=== PATIENT | male | born 1950 | race Caucasian/White ===

== ENCOUNTER 2018-02-04 06:14 | Inpatient (IN) | payer OTHER, BC ==
[2018-02-04 06:38] VITALS: BMI 33.2
--- NOTE | 2018-02-04 07:14 | PDOC ---
History of Present Illness <Desi Jon - Last Filed: 02/04/18 10:18> - History of Present Illness Initial Comments: 02/04/18 07:29 The patient is a 68 year old male with a history of HTN, HLD who presents for evaluation of SOB and cough. The patient reports a 5 week history of productive cough with associated SOB. The patient reports that he has been managed on an outpatient basis by his primary care provider Dr. Dileep Arango and has been on a course of azithromycin and currently on a course of bactrim with no improvement in his symptoms. The patient reports that Dr. Arango sent the patient in for admission for iv antibiotics. The patient reports continued cough with production of greenish sputum. The patient reports some worsening lower extremity swelling, but otherwise denies fevers, chills, chest pain, nausea, vomiting, abdominal pain, or changes with urination or bowel movements. <Mitchell Stiles - Last Filed: 02/04/18 10:30> - General Chief Complaint: Respiratory Stated Complaint: COUGHING Time Seen by Provider: 02/04/18 07:13 Past History <Desi Jon - Last Filed: 02/04/18 10:18> - Past Medical History COPD: No GI Disorders: Yes (DIVERTICULOSIS) HTN: Yes - Surgical History Neurologic Surgery: Yes (s/p front-parietal craniotomy) Orthopedic Surgery: Yes (ELBOW SX) - Immunization History Immunization Up to Date: Yes - Suicide/Smoking/Psychosocial Hx Smoking Status: No (INTUBATED UTD) Smoking History: Never smoked Have you smoked in the past 12 months: No Number of Cigarettes Smoked Daily: 0 Information on smoking cessation initiated: No Hx Alcohol Use: No Drug/Substance Use Hx: No Substance Use Type: Alcohol <Mitchell Stlies - Last Filed: 02/04/18 10:30> - Past Medical History Allergies/Adverse Reactions: Allergies Allergy/AdvReac Type Severity Reaction Status Date / Time No Known Allergies Allergy Verified 02/04/18 06:36 Home Medications: Ambulatory Orders Zolpidem Tartrate [Ambien Cr] 12.5 mg PO HS 01/25/16 Amlodipine Besylate/Benazepril [Lotrel 5-10 mg Capsule] 1 each PO DAILY Diazepam [Valium] 5 mg PO ONCE 02/04/18 Sulfamethoxazole/Trimethoprim [Sulfatrim 800-160 mg/20 ml Jeanie] 20 ml PO BID 03/19 Review of Systems - Review of Systems Comments:: 02/04/18 07:39 Constitutional: No fevers, chills, fatigue, malaise HEENT: No Rhinorrhea, nasal congestion, visual changes Cardiovascular: No chest pain, syncope, palpitations, lightheadedness Respiratory: SOB, Cough. No Hemoptysis, Gastrointestinal: No Abdominal pain, Nausea, Vomiting, Constipation, Diarrhea, Melena Genitourinary: No Dysuria, Frequency, Urgency, Hesitancy, Hematuria, Flank pain Musculoskeletal: No Myalgia, arthralgia Skin: No rashes, itching, bruising, pallor Neurologic: No Headache, Dizziness, Numbness, Weakness, or Tingling Psychiatric: No Hallucinations. No SI or HI <Mitchell Stiles - Last Filed: 02/04/18 10:30> *Physical Exam - Vital Signs Last Vital Signs Temp Pulse Resp BP Pulse Ox 97.4 F L 68 22 136/96 97 02/04/18 06:31 02/04/18 06:31 02/04/18 06:31 02/04/18 06:31 02/04/18 06:31 <Desi Jon - Last Filed: 02/04/18 10:18> - Vital Signs Last Vital Signs Temp Pulse Resp BP Pulse Ox 97.4 F L 68 22 136/96 97 02/04/18 06:31 02/04/18 06:31 02/04/18 06:31 02/04/18 06:31 02/04/18 06:31 - Physical Exam Comments: 02/04/18 07:39 General Appearance: Nourished. No Apparent Distress HEENT: EOMI, BOGDAN. No Pharyngeal Erythema, Tonsillar Exudate, Tonsillar Erythema Neck: No Cervical Lymphadenopathy Respiratory/Chest: Lungs Clear, Normal Breath Sounds. No Crackles, Rales, Rhonchi, Wheezing Cardiovascular: Regular Rhythm, Regular Rate. No Murmur, Gallops, Rubs Gastrointestinal/Abdominal: Normal Bowel Sounds, Soft. No Guarding, Rebound, Tenderness Musculoskeletal: No CVA Tenderness Extremity: 3+ Pitting edema in the lower extremities bilaterally. Normal Capillary Refill Integumentary: Normal Color, Dry, Warm Neurologic: Fully Oriented, Alert, Normal Mood/Affect, Normal Response, <Mitchell Stiles - Last Filed: 02/04/18 10:30> Heart Score/ECG Review #1 ECG reviewed & interpreted by me at: 10:04 General ECG Interpretation: Sinus Rhythm, Normal Rate, Normal Intervals, No acute ischemic changes <Mitchell Stiles - Last Filed: 02/04/18 10:30> ED Treatment Course - LABORATORY CBC & Chemistry Diagram: 02/04/18 07:24 02/04/18 07:24 - ADDITIONAL ORDERS Additional order review: Laboratory Results 02/04/18 07:24 Sodium 141 Potassium 3.8 Chloride 107 Carbon Dioxide 28 Anion Gap 6 L BUN 9 D Creatinine 1.0 Creat Clearance w eGFR > 60 Random Glucose 109 H Calcium 8.4 L Total Bilirubin 0.3 D AST 17 D ALT 16 D Alkaline Phosphatase 71 Creatine Kinase 130 Troponin I 0.03 D B-Natriuretic Peptide 113.24 Total Protein 6.8 Albumin 3.6 02/04/18 07:24 RBC 3.93 L MCV 95.4 MCHC 34.4 RDW 14.8 D MPV 7.1 L Neutrophils % No Result Required. Lymphocytes % No Result Required. - Medications Given in the ED: ED Medications Discontinued Medications Generic Name Dose Route Start Last Admin Trade Name Freq PRN Reason Stop Dose Admin Albuterol/Ipratropium 1 amp 02/04/18 07:46 02/04/18 08:30 Duoneb - NEB 02/04/18 07:47 1 amp ONCE ONE Administration <Desi Jon - Last Filed: 02/04/18 10:18> - LABORATORY CBC & Chemistry Diagram: 02/04/18 07:24 02/04/18 07:24 <Mitchell Stiles - Last Filed: 02/04/18 10:30> Medical Decision Making - Medical Decision Making 02/04/18 10:[address] Dileep Arango's answering service, patient's PCP, awaiting call back. <Desi Jon - Last Filed: 02/04/18 10:18> - Medical Decision Making 02/04/18 07:40 The patient is a 68 year old male with a history of HTN, HLD who presents for evaluation of SOB and cough. Differential includes but is not limited to: ACS, Pneumonia, CHF exacerbation, infectious, metabolic derangement. Given the patient's history, we will obtain a cbc, cmp, troponin, bnp, EKG, chest CT to evaluate further for possible etiologies. We will continue to monitor and reassess in the meantime. 02/04/18 10:29 CBC, cmp, troponin, bnp are unremarkable. Chest CT demonstrates chronic changes , but no evidence of pneumonia as read by our radiologist. We discussed the case with Dr. Arango who accepted the patient for admission. <Mitchell Stiles - Last Filed: 02/04/18 10:30> *DC/Admit/Observation/Transfer - Attestations Scribe Attestion: 02/04/18 10:19 Documentation prepared by Desi Jon, acting as medical voucher clerk for Paula Guzman DO. <Desi Jon - Last Filed: 02/04/18 10:18> - Discharge Dispostion Admit: Yes <Mitchell Stiles - Last Filed: 02/04/18 10:30> Diagnosis at time of Disposition: COPD exacerbation CHF (congestive heart failure) Qualifiers: Heart failure type: unspecified Heart failure chronicity: unspecified Qualified Code(s): I50.9 - Heart failure, unspecified - Discharge Dispostion Condition at time of disposition: Stable - Referrals Referrals: Dileep Arango MD [Primary Care Provider] - - Patient Instructions - Post Discharge Activity
--- NOTE | 2018-02-04 07:19 | PDOC ---
Attending Attestation - HPI HPI: 02/04/18 10:50 The patient is a 68 year old male, with a significant past medical history of HTN and HLD, who presents to the emergency department with, 5 weeks of a worsening cough and shortness of breath. The patient describes his cough as intermittently productive with clear sputum sometimes green in coloration. The patient took two courses of a Z-Pack and is now on Bactrim, without improvement. He reports he used to be able to run 4 miles and can now only run a half of mile at most. He reports a runny nose and itchy eyes. He denies any recent fevers, chills, headache or dizziness. He denies any recent nausea, vomit, diarrhea or constipation. He denies any recent chest pain. He denies any recent dysuria, frequency, urgency or hematuria. Allergies: NKA Social History: Nonsmoker. Denies EtOH use and recreational drug use. Primary Care Physician: Dr. Dileep Arango <Desi Jon - Last Filed: 02/04/18 10:50> - Resident Resident Name: Mitchell Stiles - ED Attending Attestation I have performed the following: I have examined & evaluated the patient, The case was reviewed & discussed with the resident, I agree w/resident's findings & plan, Exceptions are as noted - Physicial Exam PE: 02/04/18 11:24 gen: aaox3, nad heart: +s1s2 reg Lungs: cta b/l abd: soft, nt/nd +bs ext: 2+ pitting edema to b/l LE, ambulatory with a steady gait ambulatory in the ED with a steady gait - Medical Decision Making 02/04/18 07:19 I, Dr. Paula Guzman, DO, attest that this document has been prepared under my direction and personally reviewed by me in its entirety. I further attest, that it accurately reflects all work, treatment, procedures and medical decision -making performed by me. 02/04/18 10:04 a/p: 68yo male sent by PMD for persistent cough, sob, sosa -recently treated twice with azithromycin as outpt -decreased exercise tolerance from 4miles per day to 0.5miles per day walking without sosa -no cp -LE edema -concerning for CAD/CHF -will obtain labs, ct chest (requested by Dr. Dileep Arango), will need obs vs admission -LE edema - will obtain duplex study given hx of knee replacement in Jul 2017 -will place on cardiac sonographer 02/04/18 10:[address] Dileep Arango request Dr. Mendez consult. 02/04/18 10:26 duplex negative for DVT + L bakers cyst <Paula Guzman - Last Filed: 02/04/18 11:26> Heart Score/ECG Review - ECG Intrepretation Comment:: 02/04/18 10:05 sinus kelsea at 55, nl axis, nl interval, no acute st/t wave findings <Paula Guzman - Last Filed: 02/04/18 11:26> Attestations - Attestations 02/04/18 10:51 Documentation prepared by Dsei Jon, acting as medical or surgical instrument maker for Paula Guzman DO. <Desi Jon - Last Filed: 02/04/18 10:50>
[2018-02-04] MEDS ORDERED: ALBUTEROL SO4 2.5/IPRATROPIUM 0.5 INH SOL 3 ML VIAL.NEB. NEB ONE ×2 (07:46→08:28)
[2018-02-04 07:48] LABS: HEMATOCRIT 37.5 % (35.4-49); HEMOGLOBIN 12.9 GM/dL (11.7-16.9); MCH 32.8 pg (25.7-33.7); MCHC 34.4 g/dl (32.0-35.9); MEAN CELL VOLUME 95.4 fl (80-96); MEAN PLT VOLUME 7.1 fl (7.5-11.1); PLATELET COUNT 248 K/MM3 (134-434); RBC 3.93 M/mm3 (4.00-5.60); RDW 14.8 % (11.9-15.9); WHITE BLOOD COUNT 9.3 K/mm3 (4.0-10.0)
[2018-02-04 08:06] LABS: ALBUMIN 3.6 g/dl (3.4-5.0); ANION GAP 6 (8-16); BILIRUBIN,TOTAL 0.3 mg/dL (0.2-1.0); BLOOD UREA NITROGEN 9 mg/dL (7-18); CALCIUM 8.4 mg/dL (8.5-10.1); CHLORIDE 107 mmol/L (98-107); CO2 28 mmol/L (21-32); GLUCOSE,RANDOM 109 mg/dL (74-106); SGPT/ALT 16 U/L (12-78); SODIUM 141 mmol/L (136-145); TOT PROT 6.8 g/dl (6.4-8.2)
[2018-02-04 08:09] LABS: ALK PHOS 71 U/L (45-117); N-TERMINAL BNP 113.24 pg/ml (5-125)
[2018-02-04 08:12] LABS: POTASSIUM 3.8 mmol/L (3.5-5.1)
[2018-02-04 08:13] LABS: SGOT/AST 17 U/L (15-37)
[2018-02-04 10:03] LABS: ANISOCYTOSIS 1+; MACROCYTOSIS 1+; PLATELET ESTIMATE NORMAL
[2018-02-04] MEDS ORDERED: ASPIRIN 81 MG CHEWABLE TABLETS PO ONE (10:05)
[2018-02-04] MEDS ORDERED: ASPIRIN 81 MG CHEWABLE TABLETS ONE (10:22)
[2018-02-04 10:31] LABS: VENOUS PC02 36.4 mmHg (38-52); VENOUS PH 7.47 (7.32-7.42)
[2018-02-04 10:32] LABS: VENOUS PO2 80.7 mmHg (28-48)
--- NOTE | 2018-02-04 13:10 | HP ---
Admitting History and Physical - Admission Chief Complaint: coughfing plem x 2wk. sob. slightley confused History of Present Illness: pt tx w numeruos atxk and inhaler steroids no help cxr copd mild outpt family concerned pt slightly delirious than befor taking in account for his ptsd [place] related developed edema legs ovef 2 wks bnp slghtly elevated ct mild chr changes History Source: Patient, Family Member Limitations to Obtaining History: Poor Historian (at times) - Past Medical History REFERRAL MANAGEMENT LIAISON: Yes: Other (anxiety) Cardiovascular: Yes: HTN Pulmonary: Yes: Bronchitis, COPD, Other (brothers w pneumonitis brother w myethenia gravis) Hepatobiliary: Yes: Cholelithiasis - Smoking History Smoking history: Never smoked Have you smoked in the past 12 months: No Aproximately how many cigarettes per day: 0 - Alcohol/Substance Use Hx Alcohol Use: No - Social History Usual Living Arrangement: Yes: Alone ADL: Independent History of Recent Travel: No Home Medications - Allergies Allergies/Adverse Reactions: Allergies Allergy/AdvReac Type Severity Reaction Status Date / Time No Known Allergies Allergy Verified 02/04/18 06:36 - Home Medications Home Medications: Ambulatory Orders Zolpidem Tartrate [Ambien Cr] 12.5 mg PO HS 01/25/16 Amlodipine Besylate/Benazepril [Lotrel 5-10 mg Capsule] 1 each PO DAILY Diazepam [Valium] 5 mg PO ONCE 02/04/18 Sulfamethoxazole/Trimethoprim [Sulfatrim 800-160 mg/20 ml Jeanie] 20 ml PO BID 03/19 Family Disease History - Family Disease History Family Disease History: Other: Brother (myesthenia gravis/ pneumonitis) Review of Systems - Review of Systems Constitutional: reports: Other (coghf) Eyes: reports: No Symptoms HENT: reports: No Symptoms Neck: reports: No Symptoms Cardiovascular: reports: Shortness of Breath Respiratory: reports: Cough Gastrointestinal: reports: No Symptoms Genitourinary: reports: No Symptoms Breasts: reports: No Symptoms Reported Musculoskeletal: reports: No Symptoms Integumentary: reports: No Symptoms Neurological: reports: Confusion Endocrine: reports: No Symptoms Hematology/Lymphatic: reports: No Symptoms Psychiatric: reports: No Symptoms Physical Examination Vital Signs: Vital Signs Temperature 97.5 F L 02/04/18 10:58 Pulse Rate 54 L 02/04/18 10:58 Respiratory Rate 18 02/04/18 10:58 Blood Pressure 128/73 02/04/18 10:58 O2 Sat by Pulse Oximetry (%) 94 L 02/04/18 10:58 Constitutional: Yes: Anxious. No: Well Nourished Eyes: Yes: WNL HENT: Yes: WNL Neck: Yes: WNL Cardiovascular: Yes: WNL Respiratory: Yes: Cough, SOB on Exertion, Wheezes Gastrointestinal: Yes: WNL ...Rectal Exam: Yes: Deferred Renal/: Yes: WNL Breast(s): Yes: WNL Musculoskeletal: Yes: WNL Extremities: Yes: WNL, Other Edema: Yes Edema: LLE: 2+, RLE: 2+ Peripheral Pulses WNL: Yes Peripheral Pulses: Left Radial: 1+, Right Radial: 1+, Left Doralis Pedis: 1+, Right Dorsalis Pedis: 1+, Left Femoral: 1+, Right Femoral: 1+ Integumentary: Yes: WNL Neurological: Yes: Alert, Oriented ...Motor Strength: WNL Psychiatric: Yes: Agitated Labs: CBC, BMP 02/04/18 07:24 02/04/18 07:24 Problem List - Problems (1) PTSD (post-traumatic stress disorder) Code(s): F43.10 - POST-TRAUMATIC STRESS DISORDER, UNSPECIFIED (2) Hypertension Code(s): I10 - ESSENTIAL (PRIMARY) HYPERTENSION (3) Gall bladder stones Code(s): K80.20 - CALCULUS OF GALLBLADDER W/O CHOLECYSTITIS W/O OBSTRUCTION (4) Adjustment reaction with anxiety and depression Code(s): F43.23 - ADJUSTMENT DISORDER WITH MIXED ANXIETY AND DEPRESSED MOOD (5) Adjustment reaction with anxiety and depression Code(s): F43.23 - ADJUSTMENT DISORDER WITH MIXED ANXIETY AND DEPRESSED MOOD (6) H/O craniotomy Code(s): Z98.890 - OTHER SPECIFIED POSTPROCEDURAL STATES Assessment/Plan steroids iv pulm cosult card enzymes o2 n/c iv antbxs
[2018-02-04] MEDS ORDERED: FUROSEMIDE 40 MG TABLET (FP) PO ONE (13:21)
[2018-02-04] MEDS ORDERED: FUROSEMIDE 40 MG TABLET (FP) ONE (14:28)
[2018-02-04] MEDS ORDERED: PIPERACILLIN/TAZOB 3.375 GM 3.375 GM/50 ML BAG IVPB ONE ×2 (14:28→22:28)
--- NOTE | 2018-02-04 14:29 | EKG ---
Test Reason : Blood Pressure : / mmHG Vent. Rate : 052 BPM Atrial Rate : 052 BPM P-R Int : 164 ms QRS Dur : 100 ms QT Int : 454 ms P-R-T Axes : 087 -02 039 degrees QTc Int : 422 ms SINUS BRADYCARDIA OTHERWISE NORMAL ECG WHEN COMPARED WITH ECG OF 22-JUN-2017 11:32, NO SIGNIFICANT CHANGE WAS FOUND Confirmed by MD Ruvalcaba Daniel ([id number]) on 02/04/2018 2:29:33 PM Referred By: Confirmed By:Mitchell Ruvalcaba MD
[2018-02-04] MEDS: PIPERACILLIN/TAZOB 3.375 GM 3.375 GM in DEXTROSE 5%-WATER - 50 ML IVPB SCH ×2 (14:43→22:33)
[2018-02-04] MEDS: ALBUTEROL SO4 2 MG TABLET PO SCH ×3 (15:12→22:34)
[2018-02-04] MEDS ORDERED: methylPREDNISolone NA SUCC 40 MG/1 ML VIAL ONE ×2 (15:46→22:35)
[2018-02-04] MEDS: methylPREDNISolone NA SUCC 40 MG/1 ML VIAL IVPUSH SCH ×2 (15:50→22:38)
--- NOTE | 2018-02-04 16:10 | EKG ---
Test Reason : Blood Pressure : / mmHG Vent. Rate : 053 BPM Atrial Rate : 053 BPM P-R Int : 158 ms QRS Dur : 090 ms QT Int : 422 ms P-R-T Axes : 068 -08 033 degrees QTc Int : 395 ms SINUS BRADYCARDIA OTHERWISE NORMAL ECG WHEN COMPARED WITH ECG OF 04-FEB-2018 07:57, NO SIGNIFICANT CHANGE WAS FOUND Confirmed by MD Ruvalcaba Daniel ([id number]) on 02/04/2018 4:10:50 PM Referred By: Gillian VALDIVIA Confirmed By:Mitchell Ruvalcaba MD
--- NOTE | 2018-02-04 16:48 | PN ---
Progress Note (short form) - Note Progress Note: PULMONARY CONSULTATION DICTATED 02/04/18 IMP DYSPNEA/COUGH ? HYPER-REACTIVE AIRWAY SYNDROME ? CARDIAC HTM HLD NIELS PLAN IV STEROIDS INHALED BRONCHODILATORS ECHO CARDIOLOGY EVALUATION PFTS OUTPATIENT DR HALL Problem List - Problems (1) Dyspnea on exertion Code(s): R06.09 - OTHER FORMS OF DYSPNEA (2) Hypertension Code(s): I10 - ESSENTIAL (PRIMARY) HYPERTENSION (3) Cough in adult patient Code(s): R05 - COUGH (4) Sleep apnea Code(s): G47.30 - SLEEP APNEA, UNSPECIFIED
--- NOTE | 2018-02-04 17:27 | CONS ---
PULMONARY CONSULTATION DATE OF CONSULTATION: 02/04/2018 REFERRING PHYSICIAN: Dr. Dileep Arango. HISTORY OF PRESENT ILLNESS: The patient is a 68-year-old white male with a past medical history of hypertension, hyperlipidemia, obstructive sleep apnea on CPAP, nonsmoker, admitted to [facility] with complaint of 5-week history of increasing shortness of breath, dyspnea on exertion and cough. The patient states that he started developing the above symptoms approximately 6 weeks. His symptoms at the time were associated with some nasal congestion but no fevers or chills. He states that over the course of time he started noticing decrease in exercise tolerance; where he used to ambulate/walk approximately 4-5 miles daily and bike, currently only rode half the amount and developed severe dyspnea. He also has a cough, occasionally productive of white sputum as well as bronchospasm. He denies hemoptysis. Denies any fevers, weight loss, night sweats. Denies any chest pains or palpitations. The patient apparently took 2 courses of Zithromax as an outpatient without any improvement. On presentation to the ER he underwent a CT scan of the chest that revealed no definitive evidence of congestive heart failure and/or pneumonia but did reveal some evidence of mild bronchiectasis. 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 There is no history of recent travel. Denies any history of DVT or PE in the past. Of note he underwent a knee replacement in July. PAST MEDICAL HISTORY: Again, includes hypertension, hyperlipidemia. Past history also includes obstructive sleep apnea. PAST SURGICAL HISTORY: Included a knee replacement. REVIEW OF SYSTEMS: Positive dyspnea on exertion. No orthopnea. No PND. Positive cough. Positive bronchospasm. No chest pain, no palpitations. No hemoptysis. No abdominal pain. Positive for lower extremity edema. CURRENT MEDICATIONS: Include Solu-Medrol, Symbicort, Prinivil, piperacillin, valium, albuterol, Ventolin, Ecotrin and Protonix. PHYSICAL EXAMINATION:General: The patient is an obese male but awake, alert, in no acute distress. Vital Signs: He is afebrile. Heart rate is 54. Blood pressure is 128/73. O2 saturation is 94% on room air. HEENT: His head is normocephalic, atraumatic. Neck: Supple. Heart: Regular, S1, S2. Chest: Clear. Abdomen: Soft. Bowel sounds positive. Extremities: Bilateral lower extremity edema, 1+. LABORATORY: WBC is 9.3, hemoglobin 12.9, hematocrit 37.5, platelet count 248,000. His blood gas pH 7.47, pCO2 36, pO2 of 80. BUN is 9, creatinine 1.0. BNP is 113. IMPRESSION: 1. Dyspnea , cough, bronchospasm. Rule out possible hyperreactive airway syndrome, chronic syndrome. Rule out mild chronic obstructive pulmonary disease possibly secondary to occupational exposure. 2. Rule out cardiac etiology. Patient at increased with hypertension, hyperlipidemia and obesity. 3. Obstructive sleep apnea syndrome. 4. Hypertension. 5. Hyperlipidemia. PLAN: IV steroids, inhaled bronchodilators, supplemental O2. PFTs as outpatient. Obtain echocardiogram as well as cardiology consultation. JOAN HALL M.D. [id number]
[2018-02-04] MEDS ORDERED: ALBUTEROL SO4 0.083% IH SOL 2.5 MG/3 ML VIAL.NEB. NEB ONE (22:27)
[2018-02-04] MEDS: BUDESONIDE/FORMETEROL FUMARATE 160/4.5 mcg INHALER IH SCH (23:29)
[2018-02-05] MEDS ORDERED: PIPERACILLIN/TAZOBACTAM 3.375 GM VIAL IVPB ONE ×2 (01:42→18:20)
[2018-02-05] MEDS ORDERED: DEXTROSE 5%-WATER - 50 ML IVPB ONE ×2 (01:42→18:20)
[2018-02-05] MEDS: PIPERACILLIN/TAZOB 3.375 GM 3.375 GM in DEXTROSE 5%-WATER - 50 ML IVPB SCH ×3 (01:45→18:24)
[2018-02-05] MEDS: methylPREDNISolone NA SUCC 40 MG/1 ML VIAL IVPUSH SCH ×4 (02:00→21:46)
[2018-02-05 07:15] LABS: BASO % 0.1 % (0-2.0); HEMATOCRIT 39.1 % (35.4-49); HEMOGLOBIN 13.5 GM/dL (11.7-16.9); LYMPH % 5.9 % (8-40); MCH 32.8 pg (25.7-33.7); MCHC 34.6 g/dl (32.0-35.9); MEAN CELL VOLUME 94.8 fl (80-96); MEAN PLT VOLUME 7.1 fl (7.5-11.1); MONO % 1.5 % (3.8-10.2); NEUT % 92.5 % (42.8-82.8); PLATELET COUNT 285 K/MM3 (134-434); RBC 4.12 M/mm3 (4.00-5.60); RDW 14.4 % (11.9-15.9); WHITE BLOOD COUNT 13.3 K/mm3 (4.0-10.0)
[2018-02-05 07:20] LABS: ALBUMIN 3.6 g/dl (3.4-5.0); ANION GAP 9 (8-16); BLOOD UREA NITROGEN 16 mg/dL (7-18); CALCIUM 8.9 mg/dL (8.5-10.1); CHLORIDE 102 mmol/L (98-107); CO2 25 mmol/L (21-32); GLUCOSE,RANDOM 132 mg/dL (74-106); POTASSIUM 4.1 mmol/L (3.5-5.1); SGOT/AST 14 U/L (15-37); SGPT/ALT 17 U/L (12-78); SODIUM 136 mmol/L (136-145)
[2018-02-05 07:23] LABS: ALK PHOS 75 U/L (45-117); BILIRUBIN,TOTAL 0.7 mg/dL (0.2-1.0); CREATININE 1.1 mg/dL (0.7-1.3); TOT PROT 7.3 g/dl (6.4-8.2)
[2018-02-05] MEDS: ALBUTEROL SO4 0.083% IH SOL 2.5 MG/3 ML VIAL.NEB. NEB PRN ×2 (08:07→22:05)
[2018-02-05] MEDS: BUDESONIDE/FORMETEROL FUMARATE 160/4.5 mcg INHALER IH SCH ×2 (10:00→21:59)
[2018-02-05] MEDS ORDERED: PIPERACILLIN/TAZOB 3.375 GM 3.375 GM in DEXTROSE 5%-WATER - 50 ML IVPB SCH (10:00)
[2018-02-05] MEDS: ALBUTEROL SO4 2 MG TABLET PO SCH ×4 (10:00→21:55)
[2018-02-05] MEDS ORDERED: diazePAM 5 MG TABLET PO SCH (10:00)
[2018-02-05] MEDS: ASPIRIN COATED 81 MG TABLET.EC PO SCH (10:12)
[2018-02-05] MEDS: LISINOPRIL 10 MG TABLET (FP) PO SCH (10:12)
[2018-02-05] MEDS: PANTOPRAZOLE 40 MG TABLET (FP) PO SCH (10:12)
--- NOTE | 2018-02-05 10:33 | PN ---
Progress Note, Physician History of Present Illness: pulmonary alert,less dyspneic,less cough - Current Medication List Current Medications: Active Medications Albuterol Sulfate (Ventolin 0.083% Nebulizer Soln -) 1 amp NEB Q4H PRN PRN Reason: SHORT OF BREATH/WHEEZING Last Admin: 02/05/18 08:07 Dose: 1 amp Albuterol Sulfate (Ventolin -) 2 mg PO QID [facility] Last Admin: 02/05/18 10:00 Dose: 2 mg Aspirin (Ecotrin -) 81 mg PO DAILY [facility] Last Admin: 02/05/18 10:12 Dose: 81 mg Budesonide/Formoterol Fumarate (Symbicort 160/4.5mcg -) 2 puff IH BID [facility] Last Admin: 02/05/18 10:00 Dose: 2 puff Diazepam (Valium -) 5 mg PO DAILY [facility] Last Admin: 02/05/18 10:12 Dose: 5 mg Piperacillin Sod/Tazobactam (Sod 3.375 gm/ Dextrose) 50 mls @ 100 mls/hr IVPB Q8H-IV [facility] PRN Reason: Protocol Lisinopril (Prinivil) 10 mg PO DAILY [facility] Last Admin: 02/05/18 10:12 Dose: 10 mg Methylprednisolone Sodium Succinate (Solu-Medrol -) 40 mg IVPUSH Q6H-IV [facility] Last Admin: 02/05/18 09:58 Dose: 40 mg Pantoprazole Sodium (Protonix -) 40 mg PO DAILY [facility] Last Admin: 02/05/18 10:12 Dose: 40 mg - Objective Vital Signs: Vital Signs Temperature 98.2 F 02/05/18 05:00 Pulse Rate 64 02/05/18 05:00 Respiratory Rate 18 02/05/18 05:00 Blood Pressure 134/77 02/05/18 05:00 O2 Sat by Pulse Oximetry (%) 96 02/04/18 18:37 Constitutional: Yes: Well Nourished, Calm Eyes: Yes: WNL HENT: Yes: WNL Neck: Yes: WNL Cardiovascular: Yes: Regular Rate and Rhythm, S1, S2 Respiratory: Yes: Wheezes (few wheezes) Gastrointestinal: Yes: Normal Bowel Sounds, Soft Extremities: Yes: WNL Edema: Yes Labs: CBC, BMP 02/05/18 06:30 02/05/18 06:30 Problem List - Problems (1) Dyspnea on exertion Code(s): R06.09 - OTHER FORMS OF DYSPNEA (2) Hypertension Code(s): I10 - ESSENTIAL (PRIMARY) HYPERTENSION (3) Cough in adult patient Code(s): R05 - COUGH (4) Sleep apnea Code(s): G47.30 - SLEEP APNEA, UNSPECIFIED Assessment/Plan IMP DYSPNEA/COUGH ? HYPER-REACTIVE AIRWAY SYNDROME ? CARDIAC HTM HLD NIELS PLAN IV STEROIDS SAME DOSE INHALED BRONCHODILATORS ECHO PENDING CARDIOLOGY EVALUATION PFTS OUTPATIENT DR HALL Problem List - Problems (1) Dyspnea on exertion Code(s): R06.09 - OTHER FORMS OF DYSPNEA (2) Hypertension Code(s): I10 - ESSENTIAL (PRIMARY) HYPERTENSION (3) Cough in adult patient Code(s): R05 - COUGH (4) Sleep apnea Code(s): G47.30 - SLEEP APNEA, UNSPECIFIED
--- NOTE | 2018-02-05 14:27 | PN ---
Progress Note, Physician Chief Complaint: still agitated feels better brething - Current Medication List Current Medications: Active Medications Albuterol Sulfate (Ventolin 0.083% Nebulizer Soln -) 1 amp NEB Q4H PRN PRN Reason: SHORT OF BREATH/WHEEZING Last Admin: 02/05/18 08:07 Dose: 1 amp Albuterol Sulfate (Ventolin -) 2 mg PO QID [facility] Last Admin: 02/05/18 10:00 Dose: 2 mg Aspirin (Ecotrin -) 81 mg PO DAILY [facility] Last Admin: 02/05/18 10:12 Dose: 81 mg Budesonide/Formoterol Fumarate (Symbicort 160/4.5mcg -) 2 puff IH BID [facility] Last Admin: 02/05/18 10:00 Dose: 2 puff Diazepam (Valium -) 5 mg PO DAILY [facility] Last Admin: 02/05/18 10:12 Dose: 5 mg Piperacillin Sod/Tazobactam (Sod 3.375 gm/ Dextrose) 50 mls @ 100 mls/hr IVPB Q8H-IV [facility] PRN Reason: Protocol Lisinopril (Prinivil) 10 mg PO DAILY [facility] Last Admin: 02/05/18 10:12 Dose: 10 mg Methylprednisolone Sodium Succinate (Solu-Medrol -) 40 mg IVPUSH Q6H-IV [facility] Last Admin: 02/05/18 09:58 Dose: 40 mg Pantoprazole Sodium (Protonix -) 40 mg PO DAILY [facility] Last Admin: 02/05/18 10:12 Dose: 40 mg - Objective Vital Signs: Vital Signs Temperature 98.7 F 02/05/18 10:00 Pulse Rate 66 02/05/18 10:00 Respiratory Rate 18 02/05/18 10:00 Blood Pressure 132/81 02/05/18 10:00 O2 Sat by Pulse Oximetry (%) 96 02/04/18 18:37 Constitutional: Yes: Anxious Eyes: Yes: WNL HENT: Yes: WNL Neck: Yes: WNL Cardiovascular: Yes: WNL Respiratory: Yes: SOB on Exertion Gastrointestinal: Yes: WNL ...Rectal Exam: Yes: WNL, Deferred Breast(s): Yes: WNL Musculoskeletal: Yes: WNL Extremities: Yes: WNL Edema: No Edema: LLE: Trace, RLE: Trace Peripheral Pulses WNL: Yes Integumentary: Yes: WNL Psychiatric: Yes: Agitated Labs: CBC, BMP 02/05/18 06:30 02/05/18 06:30 Problem List - Problems (1) PTSD (post-traumatic stress disorder) Code(s): F43.10 - POST-TRAUMATIC STRESS DISORDER, UNSPECIFIED (2) Hypertension Code(s): I10 - ESSENTIAL (PRIMARY) HYPERTENSION (3) Gall bladder stones Code(s): K80.20 - CALCULUS OF GALLBLADDER W/O CHOLECYSTITIS W/O OBSTRUCTION (4) Adjustment reaction with anxiety and depression Code(s): F43.23 - ADJUSTMENT DISORDER WITH MIXED ANXIETY AND DEPRESSED MOOD (5) Adjustment reaction with anxiety and depression Code(s): F43.23 - ADJUSTMENT DISORDER WITH MIXED ANXIETY AND DEPRESSED MOOD (6) H/O craniotomy Code(s): Z98.890 - OTHER SPECIFIED POSTPROCEDURAL STATES Assessment/Plan neurotonpo 600mg up valium 5 bid olanzapine 7>5 mg hs
[2018-02-05] MEDS ORDERED: GABAPENTIN 300 MG CAPSULE (FP) PO ONE (14:28)
--- NOTE | 2018-02-05 14:32 | CON.ID ---
Consult Consult Specialty:: infectious diseases Referred by:: Reason for Consultation:: copd,pna - History of Present Illness Chief Complaint: cough sob,weakness History of Present Illness: The patient is a 68 year old male with a history of HTN, HLD admitted for SOB and cough. The patient reports a 5 week history of productive cough with associated SOB. according tot he patient he had cough which has fluctuated between yellow and white and currently he is producing whitish sputum. patient has taken couple of courses of zithromax without any improvement and his sputum in between also was greenish The patient reports some worsening lower extremity swelling, but otherwise denies fevers, chills, chest pain, nausea, vomiting, abdominal pain, or changes with urination or bowel movements. 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: Other (anxiety) Cardio/Vascular: Yes: HTN Pulmonary: Yes: Bronchitis, COPD, Other (brothers w pneumonitis brother w myethenia gravis) Hepatobiliary: Yes: Cholelithiasis - Alcohol/Substance Use Hx Alcohol Use: No - Smoking History Smoking history: Never smoked Have you smoked in the past 12 months: No Aproximately how many cigarettes per day: 0 - Social History ADL: Independent History of Recent Travel: No Home Medications - Allergies Allergies/Adverse Reactions: Allergies Allergy/AdvReac Type Severity Reaction Status Date / Time No Known Allergies Allergy Verified 02/04/18 06:36 - Home Medications Home Medications: Ambulatory Orders Zolpidem Tartrate [Ambien Cr] 12.5 mg PO HS 01/25/16 Amlodipine Besylate/Benazepril [Lotrel 5-10 mg Capsule] 1 each PO DAILY Diazepam [Valium] 5 mg PO ONCE 02/04/18 Sulfamethoxazole/Trimethoprim [Sulfatrim 800-160 mg/20 ml Jeanie] 20 ml PO BID 03/19 Gabapentin 600 mg PO HS 02/05/18 Gabapentin [Neurontin -] 200 mg PO DAILY 02/05/18 Family Disease History - Family Disease History Family Disease History: Other: Brother (myesthenia gravis/ pneumonitis) Review of Systems - Review of Systems Constitutional: reports: Weakness, Other Eyes: reports: No Symptoms HENT: reports: No Symptoms Neck: reports: No Symptoms Cardiovascular: reports: No Symptoms Respiratory: reports: Cough, SOB, SOB on Exertion, Wheezing, Other (sputum poduction) Gastrointestinal: reports: No Symptoms Genitourinary: reports: No Symptoms Musculoskeletal: reports: No Symptoms Integumentary: reports: No Symptoms Neurological: reports: No Symptoms Endocrine: reports: No Symptoms Hematology/Lymphatic: reports: No Symptoms Psychiatric: reports: No Symptoms Physical Exam Vital Signs: Vital Signs Temperature 98.7 F 02/05/18 10:00 Pulse Rate 66 02/05/18 10:00 Respiratory Rate 18 02/05/18 10:00 Blood Pressure 132/81 02/05/18 10:00 O2 Sat by Pulse Oximetry (%) 96 02/04/18 18:37 Constitutional: Yes: Well Nourished, No Distress, Calm, Obese Eyes: Yes: Conjunctiva Clear HENT: Yes: Atraumatic, Normocephalic Neck: Yes: Supple, Trachea Midline Cardiovascular: Yes: Regular Rate and Rhythm Respiratory: Yes: Poor Air Entry (bases), Rhonchi (bilaterally), Wheezes Gastrointestinal: Yes: Normal Bowel Sounds, Soft Musculoskeletal: Yes: WNL Extremities: Yes: WNL Neurological: Yes: Alert, Oriented Psychiatric: Yes: Alert, Oriented Labs: CBC, BMP 02/05/18 06:30 02/05/18 06:30 Imaging - Results Cat Scan: Report Reviewed, Image Reviewed Assessment/Plan Problem List - Problems (1) Dyspnea on exertion Code(s): R06.09 - OTHER FORMS OF DYSPNEA (2) Hypertension Code(s): I10 - ESSENTIAL (PRIMARY) HYPERTENSION (3) Cough in adult patient Code(s): R05 - COUGH (4) Sleep apnea Code(s): G47.30 - SLEEP APNEA, UNSPECIFIED Assessment/Plan with patient history of taking abx and not getting cured on oral abx will give patient couple of days of iv abx which then will be transitioned to oral continue current mgmt continue zosyn for now incentive ladan rest as per the team
[2018-02-05] MEDS: diazePAM 5 MG TABLET PO SCH (21:55)
[2018-02-05] MEDS ORDERED: IPRATROPIUM BR 0.02% 0.5 MG/2.5 ML VIAL.NEB. NEB PRN (21:59)
[2018-02-05] MEDS ORDERED: guaiFENesin/D-METHORPHAN HB 5 ML UNIT-DOSE CUPS PO PRN (21:59)
[2018-02-05] MEDS ORDERED: OLANZapine 7.5 MG TABLET PO SCH (22:00)
--- NOTE | 2018-02-05 22:44 | CONS ---
CARDIOLOGY CONSULTATION DATE OF CONSULTATION: DATE OF DICTATION: 02/05/2018 REQUESTING PHYSICIAN: Dileep Arango MD CHIEF COMPLAINTS: 1. History of cough. 2. Shortness of breath. HISTORY OF PRESENT ILLNESS: Patient is a 68-year-old white gentleman with history of hypertension, hypercholesterolemia, who developed cough and expectoration which was yellowish-greenish in color in the beginning, and was placed on Zithromax on 2 separate occasions. The cough persisted, and the expectoration became whitish and thick. Patient apparently was treated with Bactrim and was sent to the hospital for further evaluation and treatment. Patient denies having palpitations, lightheadedness, dizziness, presyncope, or syncope. He states that he has had dyspnea on exertion dating back to his discharge after a left knee replacement, and apparently, it became more pronounced since his recent episode with cough and has had intermittent palpitations, easy fatigability. There is no history of paroxysmal nocturnal dyspnea or orthopnea. He has had periodic swelling of his ankles for the past 2 months. No history of chest pain or discomfort either at rest or with exertion. No history of diabetes mellitus. No history of heart murmur. PAST HISTORY: As mentioned above. History of head injury and intracranial bleeding. Chronic insomnia. SURGICAL HISTORY: Status post craniotomy. Status post left knee replacement. Status post right knee . SOCIAL HISTORY: He is , retired in 2016, has a son. Has never smoked. Admits to binge and heavy drinking. FAMILY HISTORY: Father at age 96 of dementia. Mother at 77 related to lung cancer. He had 2 brothers and 3 sisters. One of the brothers last year of myasthenia gravis. One sister had 2 different carcinomas. Second brother has also developed myasthenia gravis. The other 2 sisters have had medical issues; type is unknown. ALLERGIES: None reported. MEDICATION: Prior to admission, he was on: 1. Amlodipine and benazepril 5/10 mg p.o. daily. 2. Valium 5 mg p.o. 3. Zolpidem 12.5 mg p.o. nightly. 4. He was on Sulfatrim 800/160 mg suspension 20 mL p.o. b.i.d. REVIEW OF SYSTEMS: Constitutional: No history of chills, fever, or night sweats. No history of fatigue. No history of unintentional weight loss. HEENT: No history of headaches, diplopia, or blurred vision. No history of epistaxis, hoarseness, tinnitus, or deafness reported. Patient has had a left upper eyelid droop and right mouth droop following his craniotomy. Respiratory: See history of present illness. There is no history of tuberculosis. Gastrointestinal: No history of nausea, vomiting, melena, or hematemesis. Neurological: See history of present illness. Genitourinary: History of BPH. He has nocturia. No history of hematuria. Has intermittent urgency. Musculoskeletal: History of pain involving the right knee. Hematological: No history of anemia, bleeding, or ecchymosis. PHYSICAL EXAMINATION: General: A 68-year-old gentleman who was in no acute distress. No pallor, cyanosis, clubbing, or jaundice. Vital Signs: Blood pressure 138/61 mmHg, pulse 86 beats per minute and regular, respirations 20 per minute. Temperature 97.4 degrees Fahrenheit. Neck: Supple. No jugular venous distention. Carotids were 2+. Upstrokes were normal. No bruits were heard, and no thyromegaly was present. Heart: No heaves or thrills. S1 and S2 were normal. No murmur or gallops were heard. Lungs: Clear on auscultation. Chest: Normal AP diameter. Expansion was symmetrical. Abdomen: Soft, nontender. No hepatosplenomegaly or palpable masses were felt. Extremities: Bilateral pitting edema 2+. No calf tenderness. Electrocardiogram: Sinus bradycardia. Baseline artifacts were recorded. Left axis deviation. Nonspecific ST and T abnormalities. No previous ECG was available for comparison. LABORATORY DATA: CBC on February 05, 2018, WBC count 13,300, hemoglobin 13.5 g/dL, platelet count 285,000. Left shift on differential. Chemistry on February 05, 2018: Sodium 136, potassium 4.1, chloride 102, CO2 of 25 mmol/L. BUN 16, creatinine 1.1 mg/dL. Random glucose 132 mg/dL. CK 130. Troponin 0.03 and 0.02, respectively. BNP was 113.24. CT scan of the chest without contrast: Impression: Mild chronic lung disease with no evidence of pneumonia or acute pathology within the . IMPRESSION: 1. Clinical presentation is suggestive of bronchitis with possible bronchospastic component. 2. Hypertension, currently normotensive. 3. History of hypercholesterolemia. 4. History of obstructive sleep apnea syndrome. 5. Pedal edema, partly related to venous insufficiency. 6. Deep venous thrombosis needs to be excluded. 7. Exogenous obesity. 8. Poor compliance. RECOMMENDATIONS: 1. Concur with current line of therapy. 2. Echocardiogram. 3. Pulmonary function tests. 4. Follow up CBC and BMP. PROGNOSIS: Guarded. Thank you for your referral. Yours sincerely, SHEBA SALAZAR M.D. [id number]
[2018-02-05] MEDS: guaiFENesin/D-METHORPHAN HB 10 ML UNIT-DOSE CUPS PO PRN (22:52)
[2018-02-06] MEDS ORDERED: PIPERACILLIN/TAZOBACTAM 3.375 GM VIAL IVPB ONE ×3 (02:04→17:05)
[2018-02-06] MEDS ORDERED: DEXTROSE 5%-WATER - 50 ML IVPB ONE ×3 (02:05→17:05)
[2018-02-06] MEDS: methylPREDNISolone NA SUCC 40 MG/1 ML VIAL IVPUSH SCH ×4 (02:28→21:29)
[2018-02-06] MEDS: PIPERACILLIN/TAZOB 3.375 GM 3.375 GM in DEXTROSE 5%-WATER - 50 ML IVPB SCH ×3 (02:28→17:10)
[2018-02-06] MEDS: guaiFENesin/D-METHORPHAN HB 10 ML UNIT-DOSE CUPS PO PRN ×4 (02:58→21:27)
[2018-02-06] MEDS ORDERED: PT OWN MED DRAWER 7, Y5N ONE ×4 (05:37→20:56)
[2018-02-06 07:35] LABS: BASO % 0.4 % (0-2.0); HEMATOCRIT 37.6 % (35.4-49); HEMOGLOBIN 12.9 GM/dL (11.7-16.9); LYMPH % 2.6 % (8-40); MCH 32.9 pg (25.7-33.7); MCHC 34.4 g/dl (32.0-35.9); MEAN CELL VOLUME 95.5 fl (80-96); MEAN PLT VOLUME 7.2 fl (7.5-11.1); MONO % 4.4 % (3.8-10.2); NEUT % 92.6 % (42.8-82.8); PLATELET COUNT 281 K/MM3 (134-434); RBC 3.93 M/mm3 (4.00-5.60); RDW 15.5 % (11.9-15.9); WHITE BLOOD COUNT 22.8 K/mm3 (4.0-10.0)
[2018-02-06 07:51] LABS: ANION GAP 10 (8-16); BLOOD UREA NITROGEN 22 mg/dL (7-18); CHLORIDE 104 mmol/L (98-107); CO2 24 mmol/L (21-32); CREATININE 1.2 mg/dL (0.7-1.3); GLUCOSE,RANDOM 149 mg/dL (74-106); POTASSIUM 4.3 mmol/L (3.5-5.1); SODIUM 138 mmol/L (136-145)
[2018-02-06] MEDS: PANTOPRAZOLE 40 MG TABLET (FP) PO SCH (09:37)
[2018-02-06] MEDS: ASPIRIN COATED 81 MG TABLET.EC PO SCH (09:37)
[2018-02-06] MEDS: diazePAM 5 MG TABLET PO SCH ×2 (09:37→21:28)
[2018-02-06] MEDS: LISINOPRIL 10 MG TABLET (FP) PO SCH (09:37)
[2018-02-06] MEDS: ALBUTEROL SO4 2 MG TABLET PO SCH ×4 (09:40→21:28)
[2018-02-06] MEDS: BUDESONIDE/FORMETEROL FUMARATE 160/4.5 mcg INHALER IH SCH ×2 (09:40→21:29)
--- NOTE | 2018-02-06 10:04 | PN ---
Progress Note, Physician History of Present Illness: PULMONARY ALERT,FEELING BETTER LESS COUGH - Current Medication List Current Medications: Active Medications Albuterol Sulfate (Ventolin 0.083% Nebulizer Soln -) 1 amp NEB Q4H PRN PRN Reason: SHORT OF BREATH/WHEEZING Last Admin: 02/05/18 22:05 Dose: 1 amp Albuterol Sulfate (Ventolin -) 2 mg PO QID [facility] Last Admin: 02/06/18 09:40 Dose: 2 mg Aspirin (Ecotrin -) 81 mg PO DAILY [facility] Last Admin: 02/06/18 09:37 Dose: 81 mg Budesonide/Formoterol Fumarate (Symbicort 160/4.5mcg -) 2 puff IH BID [facility] Last Admin: 02/06/18 09:40 Dose: 2 puff Diazepam (Valium -) 5 mg PO BID [facility] Last Admin: 02/06/18 09:37 Dose: 5 mg Guaifenesin (Robitussin Dm -) 10 ml PO Q4H PRN PRN Reason: COUGH/CHEST CONGESTION Last Admin: 02/06/18 07:02 Dose: 10 ml Piperacillin Sod/Tazobactam (Sod 3.375 gm/ Dextrose) 50 mls @ 100 mls/hr IVPB Q8H-IV [facility] PRN Reason: Protocol Last Admin: 02/06/18 09:40 Dose: 100 mls/hr Ipratropium [place] (Atrovent 0.02% Nebulizer -) 1 amp NEB Q4H PRN PRN Reason: SHORT OF BREATH/WHEEZING Lisinopril (Prinivil) 10 mg PO DAILY [facility] Last Admin: 02/06/18 09:37 Dose: 10 mg Methylprednisolone Sodium Succinate (Solu-Medrol -) 40 mg IVPUSH Q6H-IV [facility] Last Admin: 02/06/18 09:37 Dose: 40 mg Olanzapine (Zyprexa -) 7.5 mg PO HS [facility] Pantoprazole Sodium (Protonix -) 40 mg PO DAILY [facility] Last Admin: 02/06/18 09:37 Dose: 40 mg - Objective Vital Signs: Vital Signs Temperature 98 F 02/06/18 08:36 Pulse Rate 90 02/06/18 08:36 Respiratory Rate 18 02/06/18 08:36 Blood Pressure 128/71 02/06/18 08:36 O2 Sat by Pulse Oximetry (%) 95 02/05/18 21:00 Constitutional: Yes: Well Nourished, Calm Eyes: Yes: WNL HENT: Yes: WNL Neck: Yes: WNL Cardiovascular: Yes: Regular Rate and Rhythm, S1, S2 Respiratory: Yes: Diminished Gastrointestinal: Yes: Normal Bowel Sounds, Soft Extremities: Yes: WNL Edema: No Labs: CBC, BMP 02/06/18 07:10 02/06/18 07:10 Problem List - Problems (1) Dyspnea on exertion Code(s): R06.09 - OTHER FORMS OF DYSPNEA (2) Hypertension Code(s): I10 - ESSENTIAL (PRIMARY) HYPERTENSION (3) Cough in adult patient Code(s): R05 - COUGH (4) Sleep apnea Code(s): G47.30 - SLEEP APNEA, UNSPECIFIED Assessment/Plan IMP DYSPNEA/COUGH SLOWLY IMPROVING ? HYPER-REACTIVE AIRWAY SYNDROME ? CARDIAC HTM HLD NIELS PLAN IV STEROIDS SAME DOSE INHALED BRONCHODILATORS ECHO PENDING PFTS OUTPATIENT DR HALL Problem List - Problems (1) Dyspnea on exertion Code(s): R06.09 - OTHER FORMS OF DYSPNEA (2) Hypertension Code(s): I10 - ESSENTIAL (PRIMARY) HYPERTENSION (3) Cough in adult patient Code(s): R05 - COUGH (4) Sleep apnea Code(s): G47.30 - SLEEP APNEA, UNSPECIFIED
--- NOTE | 2018-02-06 11:07 | PN ---
Progress Note, Physician Chief Complaint: getting betervss - Current Medication List Current Medications: Active Medications Albuterol Sulfate (Ventolin 0.083% Nebulizer Soln -) 1 amp NEB Q4H PRN PRN Reason: SHORT OF BREATH/WHEEZING Last Admin: 02/05/18 22:05 Dose: 1 amp Albuterol Sulfate (Ventolin -) 2 mg PO QID [facility] Last Admin: 02/06/18 09:40 Dose: 2 mg Aspirin (Ecotrin -) 81 mg PO DAILY [facility] Last Admin: 02/06/18 09:37 Dose: 81 mg Budesonide/Formoterol Fumarate (Symbicort 160/4.5mcg -) 2 puff IH BID [facility] Last Admin: 02/06/18 09:40 Dose: 2 puff Diazepam (Valium -) 5 mg PO BID [facility] Last Admin: 02/06/18 09:37 Dose: 5 mg Guaifenesin (Robitussin Dm -) 10 ml PO Q4H PRN PRN Reason: COUGH/CHEST CONGESTION Last Admin: 02/06/18 07:02 Dose: 10 ml Piperacillin Sod/Tazobactam (Sod 3.375 gm/ Dextrose) 50 mls @ 100 mls/hr IVPB Q8H-IV [facility] ROS[facility] PRN Reason: Protocol Last Admin: 02/06/18 09:40 Dose: 100 mls/hr Ipratropium [place] (Atrovent 0.02% Nebulizer -) 1 amp NEB Q4H PRN PRN Reason: SHORT OF BREATH/WHEEZING Lisinopril (Prinivil) 10 mg PO DAILY [facility] Last Admin: 02/06/18 09:37 Dose: 10 mg Methylprednisolone Sodium Succinate (Solu-Medrol -) 40 mg IVPUSH Q6H-IV [facility] Last Admin: 02/06/18 09:37 Dose: 40 mg Olanzapine (Zyprexa -) 7.5 mg PO HS [facility] Pantoprazole Sodium (Protonix -) 40 mg PO DAILY [facility] Last Admin: 02/06/18 09:37 Dose: 40 mg - Objective Vital Signs: Vital Signs Temperature 98 F 02/06/18 08:36 Pulse Rate 90 02/06/18 08:36 Respiratory Rate 18 02/06/18 08:36 Blood Pressure 128/71 02/06/18 08:36 O2 Sat by Pulse Oximetry (%) 92 L 02/06/18 08:00 Constitutional: Yes: Well Nourished Eyes: Yes: WNL HENT: Yes: WNL Neck: Yes: WNL Cardiovascular: Yes: WNL Respiratory: Yes: Diminished Gastrointestinal: Yes: WNL ...Rectal Exam: Yes: Deferred Genitourinary: Yes: WNL Breast(s): Yes: WNL Musculoskeletal: Yes: WNL Extremities: Yes: WNL Edema: No Integumentary: Yes: WNL Neurological: Yes: WNL ...Motor Strength: WNL Psychiatric: Yes: WNL Labs: CBC, BMP 02/06/18 07:10 02/06/18 07:10 Problem List - Problems (1) PTSD (post-traumatic stress disorder) Code(s): F43.10 - POST-TRAUMATIC STRESS DISORDER, UNSPECIFIED (2) Hypertension Code(s): I10 - ESSENTIAL (PRIMARY) HYPERTENSION (3) Gall bladder stones Code(s): K80.20 - CALCULUS OF GALLBLADDER W/O CHOLECYSTITIS W/O OBSTRUCTION (4) Adjustment reaction with anxiety and depression Code(s): F43.23 - ADJUSTMENT DISORDER WITH MIXED ANXIETY AND DEPRESSED MOOD (5) Adjustment reaction with anxiety and depression Code(s): F43.23 - ADJUSTMENT DISORDER WITH MIXED ANXIETY AND DEPRESSED MOOD (6) H/O craniotomy Code(s): Z98.890 - OTHER SPECIFIED POSTPROCEDURAL STATES Assessment/Plan cont tx as is
--- NOTE | 2018-02-06 14:20 | PN ---
Progress Note, Physician History of Present Illness: stable feels better breathing feels he is congested sputum production whitish in color - Current Medication List Current Medications: Active Medications Albuterol Sulfate (Ventolin 0.083% Nebulizer Soln -) 1 amp NEB Q4H PRN PRN Reason: SHORT OF BREATH/WHEEZING Last Admin: 02/05/18 22:05 Dose: 1 amp Albuterol Sulfate (Ventolin -) 2 mg PO QID [facility] Last Admin: 02/06/18 09:40 Dose: 2 mg Aspirin (Ecotrin -) 81 mg PO DAILY [facility] Last Admin: 02/06/18 09:37 Dose: 81 mg Budesonide/Formoterol Fumarate (Symbicort 160/4.5mcg -) 2 puff IH BID [facility] Last Admin: 02/06/18 09:40 Dose: 2 puff Diazepam (Valium -) 5 mg PO BID [facility] Last Admin: 02/06/18 09:37 Dose: 5 mg Guaifenesin (Robitussin Dm -) 10 ml PO Q4H PRN PRN Reason: COUGH/CHEST CONGESTION Last Admin: 02/06/18 07:02 Dose: 10 ml Piperacillin Sod/Tazobactam (Sod 3.375 gm/ Dextrose) 50 mls @ 100 mls/hr IVPB Q8H-IV [facility] PRN Reason: Protocol Last Admin: 02/06/18 09:40 Dose: 100 mls/hr Ipratropium [place] (Atrovent 0.02% Nebulizer -) 1 amp NEB Q4H PRN PRN Reason: SHORT OF BREATH/WHEEZING Lisinopril (Prinivil) 10 mg PO DAILY [facility] Last Admin: 02/06/18 09:37 Dose: 10 mg Methylprednisolone Sodium Succinate (Solu-Medrol -) 40 mg IVPUSH Q6H-IV [facility] Last Admin: 02/06/18 09:37 Dose: 40 mg Olanzapine (Zyprexa -) 7.5 mg PO HS [facility] Pantoprazole Sodium (Protonix -) 40 mg PO DAILY [facility] Last Admin: 02/06/18 09:37 Dose: 40 mg - Objective Vital Signs: Vital Signs Temperature 98 F 02/06/18 08:36 Pulse Rate 90 02/06/18 08:36 Respiratory Rate 18 02/06/18 08:36 Blood Pressure 128/71 02/06/18 08:36 O2 Sat by Pulse Oximetry (%) 92 L 02/06/18 08:00 Constitutional: Yes: Calm, Mild Distress, Obese Cardiovascular: Yes: Regular Rate and Rhythm Respiratory: Yes: Regular, Rhonchi, Wheezes Gastrointestinal: Yes: Normal Bowel Sounds, Soft Musculoskeletal: Yes: WNL Extremities: Yes: WNL Neurological: Yes: Alert, Oriented Psychiatric: Yes: Alert, Oriented Labs: CBC, BMP 02/06/18 07:10 02/06/18 07:10 Assessment/Plan Problem List - Problems (1) Dyspnea on exertion Code(s): R06.09 - OTHER FORMS OF DYSPNEA (2) Hypertension Code(s): I10 - ESSENTIAL (PRIMARY) HYPERTENSION (3) Cough in adult patient Code(s): R05 - COUGH (4) Sleep apnea Code(s): G47.30 - SLEEP APNEA, UNSPECIFIED Assessment/Plan continue current mgmt continue zosyn for now incentive ladan rest as per the team
[2018-02-06] MEDS: ALBUTEROL SO4 0.083% IH SOL 2.5 MG/3 ML VIAL.NEB. NEB PRN ×2 (16:18→21:01)
[2018-02-06] MEDS: OLANZapine 2.5 MG TABLET PO SCH (21:28)
--- NOTE | 2018-02-06 22:15 | PN ---
Progress Note (short form) - Note Progress Note: 68 year old male known case of hypertesion and hypercholesterolemia admitted with persistent cough and expectoration treated with multiple coarses of antibiotics, patient also had SOB. currently treated for asthmatic bronchitis / COPD. Cough persists, no SOB reported, no chest pain or discomfort. No palpitations. Active Medications Generic Name Dose Route Start Last Admin Trade Name Freq PRN Reason Stop Dose Admin Albuterol Sulfate 1 amp 02/04/18 13:21 02/06/18 21:01 Ventolin 0.083% Nebulizer Soln - NEB 1 amp Q4H PRN Administration SHORT OF BREATH/WHEEZING Albuterol Sulfate 2 mg 02/04/18 14:00 02/06/18 21:28 Ventolin - PO 2 mg QID ANA ROSA Administration Aspirin 81 mg 02/05/18 10:00 02/06/18 09:37 Ecotrin - PO 81 mg DAILY ANA ROSA Administration Budesonide/Formoterol Fumarate 2 puff 02/04/18 22:00 02/06/18 21:29 Symbicort 160/4.5mcg - IH 2 puff BID ANA ROSA Administration Diazepam 5 mg 02/05/18 22:00 02/06/18 21:28 Valium - PO 5 mg BID ANA ROSA Administration Guaifenesin 10 ml 02/05/18 22:00 02/06/18 21:27 Robitussin Dm - PO 10 ml Q4H PRN Administration COUGH/CHEST CONGESTION Piperacillin Sod/Tazobactam 50 mls @ 100 mls/hr 02/05/18 14:45 02/06/18 17:10 Sod 3.375 gm/ Dextrose IVPB 100 mls/hr Q8H-IV ANA ROSA Administration Protocol Ipratropium [place] 1 amp 02/05/18 21:59 Atrovent 0.02% Nebulizer - NEB Q4H PRN SHORT OF BREATH/WHEEZING Lisinopril 10 mg 02/05/18 10:00 02/06/18 09:37 Prinivil PO 10 mg DAILY ANA ROSA Administration Methylprednisolone Sodium Succinate 40 mg 02/04/18 15:00 02/06/18 21:29 Solu-Medrol - IVPUSH 40 mg Q6H-IV [facility]NA ROS[facility] Administration Olanzapine 7.5 mg 02/06/18 22:00 02/06/18 21:28 Zyprexa - PO 7.5 mg HS ANA ROSA Administration Pantoprazole Sodium 40 mg 05/07/18 10:00 02/06/18 09:37 Protonix - PO 40 mg DAILY ANA ROSA Administration 68 year old male still coughing, no pallor, cyanosis, clubbing or jaundice. Last Vital Signs Temp Pulse Resp BP Pulse Ox 98.5 F 72 20 126/60 92 L 02/06/18 17:00 02/06/18 17:00 02/06/18 17:00 02/06/18 17:00 02/06/18 08:00 NECK: Supple, no JVD, carotid 2+, no bruits. HEART: PMI in the 5th ICS, no heaves or thrills. Heart sounds obscureds by coarse breath sounds and expiratory wheezing. LUNGS: Scattered creps. and wheezing bilaterally. ABDOMEN: Soft, protubarent, nontender, no organomegaly or palpable masses. EXTREMITIES: NO calf tenderness or dependent edema. CBC, BMP 02/06/18 07:10 02/06/18 07:10 IMPRESSION: 1. Persistent asthmatic bronchitis. 2. COPD. 3. Hypertension. 4. Hypercholesterolemia. 5. Cough related to CORBY/ARB. 6. Leukocytosis partly related to steroids. Recommendations: 1. Consider discontinuing CORBY. 2. Sputum Gram stain. 3. Current antihypertensive therapy.
[2018-02-07] MEDS ORDERED: PIPERACILLIN/TAZOBACTAM 3.375 GM VIAL IVPB ONE ×2 (01:18→08:17)
[2018-02-07] MEDS ORDERED: DEXTROSE 5%-WATER - 50 ML IVPB ONE ×2 (01:18→08:17)
[2018-02-07] MEDS: PIPERACILLIN/TAZOB 3.375 GM 3.375 GM in DEXTROSE 5%-WATER - 50 ML IVPB SCH ×2 (02:40→10:21)
[2018-02-07] MEDS: guaiFENesin/D-METHORPHAN HB 10 ML UNIT-DOSE CUPS PO PRN ×3 (03:40→21:16)
[2018-02-07] MEDS: methylPREDNISolone NA SUCC 40 MG/1 ML VIAL IVPUSH SCH ×3 (03:40→21:14)
[2018-02-07 08:55] LABS: BASO % 0.1 % (0-2.0); HEMATOCRIT 37.6 % (35.4-49); HEMOGLOBIN 12.8 GM/dL (11.7-16.9); LYMPH % 3.3 % (8-40); MCH 32.7 pg (25.7-33.7); MCHC 33.9 g/dl (32.0-35.9); MEAN CELL VOLUME 96.3 fl (80-96); MEAN PLT VOLUME 7.4 fl (7.5-11.1); MONO % 3.7 % (3.8-10.2); NEUT % 92.9 % (42.8-82.8); PLATELET COUNT 247 K/MM3 (134-434); RDW 15.3 % (11.9-15.9); WHITE BLOOD COUNT 14.3 K/mm3 (4.0-10.0)
[2018-02-07] MEDS: PANTOPRAZOLE 40 MG TABLET (FP) PO SCH ×2 (08:55→13:21)
[2018-02-07] MEDS: LISINOPRIL 10 MG TABLET (FP) PO SCH ×2 (08:55→13:21)
[2018-02-07] MEDS: diazePAM 5 MG TABLET PO SCH ×3 (08:56→21:14)
[2018-02-07] MEDS: ASPIRIN COATED 81 MG TABLET.EC PO SCH ×2 (08:56→13:20)
[2018-02-07] MEDS: ALBUTEROL SO4 2 MG TABLET PO SCH ×5 (08:58→21:14)
[2018-02-07 10:16] LABS: CHLORIDE 105 mmol/L (98-107); POTASSIUM 4.5 mmol/L (3.5-5.1); SODIUM 139 mmol/L (136-145)
[2018-02-07] MEDS: BUDESONIDE/FORMETEROL FUMARATE 160/4.5 mcg INHALER IH SCH ×2 (10:21→21:14)
--- NOTE | 2018-02-07 10:33 | PN ---
Progress Note, Physician History of Present Illness: pulmonary alert,feeling better,less cough,less dyspneic - Current Medication List Current Medications: Active Medications Albuterol Sulfate (Ventolin 0.083% Nebulizer Soln -) 1 amp NEB Q4H PRN PRN Reason: SHORT OF BREATH/WHEEZING Last Admin: 02/06/18 21:01 Dose: 1 amp Albuterol Sulfate (Ventolin -) 2 mg PO QID [facility] Last Admin: 02/07/18 08:58 Dose: 2 mg Aspirin (Ecotrin -) 81 mg PO DAILY [facility] Last Admin: 02/07/18 08:56 Dose: 81 mg Budesonide/Formoterol Fumarate (Symbicort 160/4.5mcg -) 2 puff IH BID [facility] Last Admin: 02/06/18 21:29 Dose: 2 puff Diazepam (Valium -) 5 mg PO BID [facility] Last Admin: 02/07/18 08:56 Dose: 5 mg Guaifenesin (Robitussin Dm -) 10 ml PO Q4H PRN PRN Reason: COUGH/CHEST CONGESTION Last Admin: 02/07/18 08:56 Dose: 10 ml Piperacillin Sod/Tazobactam (Sod 3.375 gm/ Dextrose) 50 mls @ 100 mls/hr IVPB Q8H-IV [facility] PRN Reason: Protocol Last Admin: 02/07/18 02:40 Dose: 100 mls/hr Ipratropium [place] (Atrovent 0.02% Nebulizer -) 1 amp NEB Q4H PRN PRN Reason: SHORT OF BREATH/WHEEZING Lisinopril (Prinivil) 10 mg PO DAILY [facility] Last Admin: 02/07/18 08:55 Dose: 10 mg Methylprednisolone Sodium Succinate (Solu-Medrol -) 40 mg IVPUSH Q6H-IV [facility] Last Admin: 02/07/18 08:57 Dose: 40 mg Olanzapine (Zyprexa -) 7.5 mg PO HS [facility] Last Admin: 02/06/18 21:28 Dose: 7.5 mg Pantoprazole Sodium (Protonix -) 40 mg PO DAILY [facility] Last Admin: 02/07/18 08:55 Dose: 40 mg - Objective Vital Signs: Vital Signs Temperature 98.6 F 02/07/18 08:26 Pulse Rate 80 02/07/18 08:26 Respiratory Rate 20 02/07/18 08:26 Blood Pressure 132/77 02/07/18 08:26 O2 Sat by Pulse Oximetry (%) 95 02/07/18 08:26 Constitutional: Yes: Well Nourished, Calm Eyes: Yes: WNL HENT: Yes: WNL Neck: Yes: WNL Cardiovascular: Yes: Regular Rate and Rhythm, S1, S2 Respiratory: Yes: Wheezes (few scattered becky wheezes) Gastrointestinal: Yes: Normal Bowel Sounds, Soft Extremities: Yes: WNL Edema: Yes Labs: CBC, BMP 02/07/18 06:30 Problem List - Problems (1) Dyspnea on exertion Code(s): R06.09 - OTHER FORMS OF DYSPNEA (2) Hypertension Code(s): I10 - ESSENTIAL (PRIMARY) HYPERTENSION (3) Cough in adult patient Code(s): R05 - COUGH (4) Sleep apnea Code(s): G47.30 - SLEEP APNEA, UNSPECIFIED Assessment/Plan IMP DYSPNEA/COUGH IMPROVING ? HYPER-REACTIVE AIRWAY SYNDROME ? CARDIAC HTM HLD NIELS PLAN STEROID TAPER INHALED BRONCHODILATORS PFTS OUTPATIENT DR HALL Problem List - Problems (1) Dyspnea on exertion Code(s): R06.09 - OTHER FORMS OF DYSPNEA (2) Hypertension Code(s): I10 - ESSENTIAL (PRIMARY) HYPERTENSION (3) Cough in adult patient Code(s): R05 - COUGH (4) Sleep apnea Code(s): G47.30 - SLEEP APNEA, UNSPECIFIED
[2018-02-07 10:45] LABS: ANION GAP 10 (8-16); BLOOD UREA NITROGEN 20 mg/dL (7-18); CALCIUM 8.7 mg/dL (8.5-10.1); CO2 24 mmol/L (21-32); CREATININE 0.9 mg/dL (0.7-1.3); GLUCOSE,RANDOM 134 mg/dL (74-106)
--- NOTE | 2018-02-07 12:10 | PN ---
Progress Note (short form) - Note Progress Note: 68 year old male known case of hypertension and hypercholesterolemia admitted with persistent cough and expectoration treated with multiple coarses of antibiotics, patient also had SOB. currently treated for asthmatic bronchitis / COPD. Patient is feeling better, has significant reduction in cough. Has persistent tremors involving the hands and appears to have a flat affect. There is drooping of the right upper eyelid and also the corner of the right upper lip. Two of the patient's brothers are known to have myasthenia gravis. Active Medications Generic Name Dose Route Start Last Admin Trade Name Freq PRN Reason Stop Dose Admin Albuterol Sulfate 1 amp 02/04/18 13:21 02/06/18 21:01 Ventolin 0.083% Nebulizer Soln - NEB 1 amp Q4H PRN Administration SHORT OF BREATH/WHEEZING Albuterol Sulfate 2 mg 02/04/18 14:00 02/07/18 08:58 Ventolin - PO 2 mg QID ANA ROSA Administration Aspirin 81 mg 02/05/18 10:00 02/07/18 08:56 Ecotrin - PO 81 mg DAILY ANA ROSA Administration Budesonide/Formoterol Fumarate 2 puff 02/04/18 22:00 02/06/18 21:29 Symbicort 160/4.5mcg - IH 2 puff BID ANA ROSA Administration Diazepam 5 mg 02/05/18 22:00 02/07/18 08:56 Valium - PO 5 mg BID ANA ROSA Administration Guaifenesin 10 ml 02/05/18 22:00 02/07/18 08:56 Robitussin Dm - PO 10 ml Q4H PRN Administration COUGH/CHEST CONGESTION Piperacillin Sod/Tazobactam 50 mls @ 100 mls/hr 02/05/18 14:45 02/07/18 02:40 Sod 3.375 gm/ Dextrose IVPB 100 mls/hr Q8H-IV ANA ROSA Administration Protocol Ipratropium [place] 1 amp 02/05/18 21:59 Atrovent 0.02% Nebulizer - NEB Q4H PRN SHORT OF BREATH/WHEEZING Lisinopril 10 mg 02/05/18 10:00 02/07/18 08:55 Prinivil PO 10 mg DAILY ANA ROSA Administration Methylprednisolone Sodium Succinate 40 mg 02/07/18 22:00 Solu-Medrol - IVPUSH BID ANA ROSA Olanzapine 7.5 mg 02/06/18 22:00 02/06/18 21:28 Zyprexa - PO 7.5 mg HS ANA ROSA Administration Pantoprazole Sodium 40 mg 02/05/18 10:00 02/07/18 08:55 Protonix - PO 40 mg DAILY ANA ROSA Administration 68 year old male still coughing, no pallor, cyanosis, clubbing or jaundice. Last Vital Signs Temp Pulse Resp BP Pulse Ox 98.6 F 80 20 132/77 95 02/07/18 08:26 02/07/18 08:26 02/07/18 08:26 02/07/18 08:26 02/07/18 08:26 NECK: Supple, no JVD, carotid 2+, no bruits. HEART: PMI in the 5th ICS, no heaves or thrills. Heart sounds obscureds by coarse breath sounds and expiratory wheezing. LUNGS: Scattered creps. and wheezing bilaterally. ABDOMEN: Soft, protubarent, nontender, no organomegaly or palpable masses. EXTREMITIES: NO calf tenderness or dependent edema. Bilateral tremors of the hands. CBC, BMP 02/07/18 06:30 02/07/18 06:30 IMPRESSION: 1. Asthmatic bronchitis. 2. COPD. 3. Parkinsonism needs to be excluded. 4. Hypercholesterolemia. 5. Cough related to CORBY/ARB. 6. Leukocytosis partly related to steroids. 7. Hypertension. 8. Family history of myasthenia gravis. Recommendations: 1. Consider discontinuing CORBY. 2. Sputum Gram stain. 3. Consider neurological consultation. 4. Increase ambulation.
--- NOTE | 2018-02-07 14:01 | PN ---
Progress Note, Physician History of Present Illness: patient stable no new issues feels much better - Current Medication List Current Medications: Active Medications Albuterol Sulfate (Ventolin 0.083% Nebulizer Soln -) 1 amp NEB Q4H PRN PRN Reason: SHORT OF BREATH/WHEEZING Last Admin: 02/06/18 21:01 Dose: 1 amp Albuterol Sulfate (Ventolin -) 2 mg PO QID [facility] Last Admin: 02/07/18 13:21 Dose: 2 mg Aspirin (Ecotrin -) 81 mg PO DAILY [facility] Last Admin: 02/07/18 13:20 Dose: Not Given Budesonide/Formoterol Fumarate (Symbicort 160/4.5mcg -) 2 puff IH BID [facility] Last Admin: 02/07/18 10:21 Dose: 2 puff Diazepam (Valium -) 5 mg PO BID [facility] Last Admin: 02/07/18 13:21 Dose: Not Given Guaifenesin (Robitussin Dm -) 10 ml PO Q4H PRN PRN Reason: COUGH/CHEST CONGESTION Last Admin: 02/07/18 08:56 Dose: 10 ml Piperacillin Sod/Tazobactam (Sod 3.375 gm/ Dextrose) 50 mls @ 100 mls/hr IVPB Q8H-IV ANA ROSA PRN Reason: Protocol Last Admin: 02/07/18 10:21 Dose: 100 mls/hr Ipratropium [place] (Atrovent 0.02% Nebulizer -) 1 amp NEB Q4H PRN PRN Reason: SHORT OF BREATH/WHEEZING Lisinopril (Prinivil) 10 mg PO DAILY [facility] Last Admin: 02/07/18 13:21 Dose: Not Given Methylprednisolone Sodium Succinate (Solu-Medrol -) 40 mg IVPUSH BID [facility] Olanzapine (Zyprexa -) 7.5 mg PO HS [facility] Last Admin: 02/06/18 21:28 Dose: 7.5 mg Pantoprazole Sodium (Protonix -) 40 mg PO DAILY [facility] Last Admin: 02/07/18 13:21 Dose: Not Given - Objective Vital Signs: Vital Signs Temperature 98.6 F 02/07/18 08:26 Pulse Rate 80 02/07/18 08:26 Respiratory Rate 20 02/07/18 08:26 Blood Pressure 132/77 02/07/18 08:26 O2 Sat by Pulse Oximetry (%) 95 02/07/18 08:26 Constitutional: Yes: No Distress, Calm, Obese Cardiovascular: Yes: Regular Rate and Rhythm Respiratory: Yes: Regular, CTA Bilaterally Gastrointestinal: Yes: Normal Bowel Sounds, Soft Musculoskeletal: Yes: WNL Extremities: Yes: WNL Neurological: Yes: Alert, Oriented Psychiatric: Yes: Alert, Oriented Labs: CBC, BMP 02/07/18 06:30 02/07/18 06:30 Assessment/Plan Problem List - Problems (1) Dyspnea on exertion Code(s): R06.09 - OTHER FORMS OF DYSPNEA (2) Hypertension Code(s): I10 - ESSENTIAL (PRIMARY) HYPERTENSION (3) Cough in adult patient Code(s): R05 - COUGH (4) Sleep apnea Code(s): G47.30 - SLEEP APNEA, UNSPECIFIED Assessment/Plan continue current mgmt will d/w primary team rest continue current mgmt incentive ladan
--- NOTE | 2018-02-07 17:50 | PN ---
Progress Note, Physician Chief Complaint: feeling much better less cogh vss pt has tremor fine at rest x 1 ?yr started - Current Medication List Current Medications: Active Medications Albuterol Sulfate (Ventolin 0.083% Nebulizer Soln -) 1 amp NEB Q4H PRN PRN Reason: SHORT OF BREATH/WHEEZING Last Admin: 02/06/18 21:01 Dose: 1 amp Albuterol Sulfate (Ventolin -) 2 mg PO QID [facility] Last Admin: 02/07/18 13:21 Dose: 2 mg Aspirin (Ecotrin -) 81 mg PO DAILY [facility] Last Admin: 02/07/18 13:20 Dose: Not Given Budesonide/Formoterol Fumarate (Symbicort 160/4.5mcg -) 2 puff IH BID [facility] Last Admin: 02/07/18 10:21 Dose: 2 puff Diazepam (Valium -) 5 mg PO BID [facility] Last Admin: 02/07/18 13:21 Dose: Not Given Guaifenesin (Robitussin Dm -) 10 ml PO Q4H PRN PRN Reason: COUGH/CHEST CONGESTION Last Admin: 02/07/18 08:56 Dose: 10 ml Piperacillin Sod/Tazobactam (Sod 3.375 gm/ Dextrose) 50 mls @ 100 mls/hr IVPB Q8H-IV ANA ROSA PRN Reason: Protocol Last Admin: 02/07/18 10:21 Dose: 100 mls/hr Ipratropium [place] (Atrovent 0.02% Nebulizer -) 1 amp NEB Q4H PRN PRN Reason: SHORT OF BREATH/WHEEZING Lisinopril (Prinivil) 10 mg PO DAILY [facility] Last Admin: 02/07/18 13:21 Dose: Not Given Methylprednisolone Sodium Succinate (Solu-Medrol -) 40 mg IVPUSH BID [facility] Olanzapine (Zyprexa -) 7.5 mg PO HS [facility] Last Admin: 02/06/18 21:28 Dose: 7.5 mg Pantoprazole Sodium (Protonix -) 40 mg PO DAILY [facility] Last Admin: 02/07/18 13:21 Dose: Not Given - Objective Vital Signs: Vital Signs Temperature 98.8 F 02/07/18 14:24 Pulse Rate 88 02/07/18 14:24 Respiratory Rate 18 02/07/18 14:24 Blood Pressure 127/79 02/07/18 14:24 O2 Sat by Pulse Oximetry (%) 95 02/07/18 08:26 Constitutional: Yes: Well Nourished Eyes: Yes: WNL HENT: Yes: WNL Neck: Yes: WNL Cardiovascular: Yes: WNL Respiratory: Yes: SOB on Exertion Gastrointestinal: Yes: WNL ...Rectal Exam: Yes: Deferred Genitourinary: Yes: WNL Breast(s): Yes: WNL Musculoskeletal: Yes: WNL Extremities: Yes: WNL Edema: No Peripheral Pulses WNL: Yes Integumentary: Yes: WNL Neurological: Yes: Tremors ...Motor Strength: WNL Psychiatric: Yes: Other (less agitated) Labs: CBC, BMP 02/07/18 06:30 02/07/18 06:30 Problem List - Problems (1) PTSD (post-traumatic stress disorder) Assessment/Plan: tremor Code(s): F43.10 - POST-TRAUMATIC STRESS DISORDER, UNSPECIFIED (2) Hypertension Code(s): I10 - ESSENTIAL (PRIMARY) HYPERTENSION (3) Gall bladder stones Code(s): K80.20 - CALCULUS OF GALLBLADDER W/O CHOLECYSTITIS W/O OBSTRUCTION (4) Adjustment reaction with anxiety and depression Code(s): F43.23 - ADJUSTMENT DISORDER WITH MIXED ANXIETY AND DEPRESSED MOOD (5) Adjustment reaction with anxiety and depression Code(s): F43.23 - ADJUSTMENT DISORDER WITH MIXED ANXIETY AND DEPRESSED MOOD (6) H/O craniotomy Code(s): Z98.890 - OTHER SPECIFIED POSTPROCEDURAL STATES Assessment/Plan po antibiotic ? augmentin neuro consult high wbc due to steroids chk labs in am ? d/c in am
[2018-02-07] MEDS ORDERED: PT OWN MED DRAWER 7, Y5N ONE (21:05)
[2018-02-07] MEDS: OLANZapine 2.5 MG TABLET PO SCH (21:15)
[2018-02-08] MEDS: guaiFENesin/D-METHORPHAN HB 10 ML UNIT-DOSE CUPS PO PRN ×2 (03:52→09:14)
[2018-02-08 07:30] LABS: HEMATOCRIT 37.1 % (35.4-49); HEMOGLOBIN 12.6 GM/dL (11.7-16.9); MCH 32.7 pg (25.7-33.7); MEAN CELL VOLUME 96.2 fl (80-96); MEAN PLT VOLUME 7.2 fl (7.5-11.1); PLATELET COUNT 215 K/MM3 (134-434); RBC 3.86 M/mm3 (4.00-5.60); WHITE BLOOD COUNT 12.5 K/mm3 (4.0-10.0)
[2018-02-08] MEDS ORDERED: AMOX TR/POT CLAV 875MG/125MG TABLETS (FP) PO SCH (08:00)
[2018-02-08] MEDS: ASPIRIN COATED 81 MG TABLET.EC PO SCH (09:15)
[2018-02-08] MEDS: LISINOPRIL 10 MG TABLET (FP) PO SCH (09:15)
[2018-02-08] MEDS: PANTOPRAZOLE 40 MG TABLET (FP) PO SCH (09:15)
[2018-02-08] MEDS: diazePAM 5 MG TABLET PO SCH (09:15)
[2018-02-08] MEDS: BUDESONIDE/FORMETEROL FUMARATE 160/4.5 mcg INHALER IH SCH (09:16)
[2018-02-08] MEDS: methylPREDNISolone NA SUCC 40 MG/1 ML VIAL IVPUSH SCH (09:16)
[2018-02-08] MEDS: ALBUTEROL SO4 2 MG TABLET PO SCH (09:19)
--- NOTE | 2018-02-08 09:41 | CONSULT ---
Consult - text type - Consultation Consultation Note: Neurology History of Present Illness The patient is a 68 year old male with a history of HTN, HLD who presented for evaluation of SOB and cough. The patient reported a 5 week history of productive cough with associated SOB. The patient reports that he has been managed on an outpatient basis by his primary care provider Dr. Dileep Arango and has been on a course of azithromycin and currently on a course of bactrim with no improvement in his symptoms. The patient reported that Dr. Arango sent the patient in for admission for iv antibiotics. Dr. Arango consulted me for ongoing tremors. The patient is known to me from prior office. 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 Currently, with b/l L>R benign essential tremor which I was consulted for he. Has extensive psych history with anxiety and PTSD for which he takes valium 5mg up to twice daily which he gets from psychiatrist. 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 This can lead to cerebellar degeneration and related tremors as well. Past History - Past Medical History COPD: No GI Disorders: Yes (DIVERTICULOSIS) HTN: Yes - Surgical History Neurologic Surgery: Yes (s/p front-parietal craniotomy) Orthopedic Surgery: Yes (ELBOW SX) - Immunization History Immunization Up to Date: Yes - Suicide/Smoking/Psychosocial Hx Smoking Status: No (INTUBATED UTD) Smoking History: Never smoked Have you smoked in the past 12 months: No Number of Cigarettes Smoked Daily: 0 Information on smoking cessation initiated: No Hx Alcohol Use: No Drug/Substance Use Hx: No Substance Use Type: Alcohol - Past Medical History Allergies/Adverse Reactions: Allergies Allergy/AdvReac Type Severity Reaction Status Date / Time No Known Allergies Allergy Verified 02/04/18 06:36 Home Medications: Ambulatory Orders Zolpidem Tartrate [Ambien Cr] 12.5 mg PO HS 01/25/16 Amlodipine Besylate/Benazepril [Lotrel 5-10 mg Capsule] 1 each PO DAILY Diazepam [Valium] 5 mg PO ONCE 02/04/18 Sulfamethoxazole/Trimethoprim [Sulfatrim 800-160 mg/20 ml Jeanie] 20 ml PO BID 03/19 Review of Systems Constitutional: No fevers, chills, fatigue, malaise HEENT: No Rhinorrhea, nasal congestion, visual changes Cardiovascular: No chest pain, syncope, palpitations, lightheadedness Respiratory: SOB, Cough. No Hemoptysis, Gastrointestinal: No Abdominal pain, Nausea, Vomiting, Constipation, Diarrhea, Melena Genitourinary: No Dysuria, Frequency, Urgency, Hesitancy, Hematuria, Flank pain Musculoskeletal: No Myalgia, arthralgia Skin: No rashes, itching, bruising, pallor Neurologic: No Headache, Dizziness, Numbness, Weakness, or Tingling Psychiatric: No Hallucinations. No SI or HI *Physical Exam Vital Signs Period Temp Pulse Resp BP Sys/[place] Pulse Ox Last 24 Hr 97.8 F-98.8 F 72-88 18-20 120-139/69-93 95 General Appearance: Nourished. No Apparent Distress HEENT: EOMI, BOGDAN. No Pharyngeal Erythema, Tonsillar Exudate, Tonsillar Erythema Neck: No Cervical Lymphadenopathy Respiratory/Chest: Lungs Clear, Normal Breath Sounds. No Crackles, Rales, Rhonchi, Wheezing Cardiovascular: Regular Rhythm, Regular Rate. No Murmur, Gallops, Rubs Gastrointestinal/Abdominal: Normal Bowel Sounds, Soft. No Guarding, Rebound, Tenderness Musculoskeletal: No CVA Tenderness Extremity: 3+ Pitting edema in the lower extremities bilaterally. Normal Capillary Refill Integumentary: Normal Color, Dry, Warm Neurologic: Fully Oriented, Alert, Normal Mood/Affect, Normal Response, CN intact, sensory slight decrease to PP in distal ext, minimal L hand resting tremor noted, gait deferred CBCD WBC 12.5 K/mm3 (4.0-10.0) H 02/08/18 07:10 RBC 3.86 M/mm3 (4.00-5.60) L 02/08/18 07:10 Hgb 12.6 GM/dL (11.7-16.9) 02/08/18 07:10 Hct 37.1 % (35.4-49) 02/08/18 07:10 MCV 96.2 fl (80-96) H 02/08/18 07:10 MCHC 34.0 g/dl (32.0-35.9) 02/08/18 07:10 RDW 15.0 % (11.9-15.9) 02/08/18 07:10 Plt Count 215 K/MM3 (134-434) 02/08/18 07:10 MPV 7.2 fl (7.5-11.1) L 02/08/18 07:10 CMP Sodium 139 mmol/L (136-145) 02/07/18 06:30 Potassium 4.5 mmol/L (3.5-5.1) 02/07/18 06:30 Chloride 105 mmol/L (98-107) 02/07/18 06:30 Carbon Dioxide 24 mmol/L (21-32) 02/07/18 06:30 Anion Gap 10 (8-16) 02/07/18 06:30 BUN 20 mg/dL (7-18) H 02/07/18 06:30 Creatinine 0.9 mg/dL (0.7-1.3) D 02/07/18 06:30 Creat Clearance w eGFR > 60 (>60) 02/05/18 06:30 Calcium 8.7 mg/dL (8.5-10.1) 02/07/18 06:30 Total Bilirubin 0.7 mg/dL (0.2-1.0) D 02/05/18 06:30 AST 14 U/L (15-37) L 02/05/18 06:30 ALT 17 U/L (12-78) 02/05/18 06:30 Alkaline Phosphatase 75 U/L (45-117) 02/05/18 06:30 Total Protein 7.3 g/dl (6.4-8.2) 02/05/18 06:30 Albumin 3.6 g/dl (3.4-5.0) 02/05/18 06:30 Medical Decision Making 68 year old male with a history of HTN, HLD who presented for evaluation of SOB and cough. The patient reported a 5 week history of productive cough with associated SOB. The patient reports that he has been managed on an outpatient basis by his primary care provider Dr. Dileep Arango and has been on a course of azithromycin and currently on a course of bactrim with no improvement in his symptoms. The patient reported that Dr. Arango sent the patient in for admission for iv antibiotics. Dr. Arango consulted me for ongoing tremors. The patient is known to me from prior office. 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 Currently, with b/l L>R benign essential tremor which I was consulted for he. Has extensive psych history with anxiety and PTSD for which he takes valium 5mg up to twice daily which he gets from psychiatrist. 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 This can lead to cerebellar degeneration and related tremors as well. -Likely multifactorial tremor -Can continue current medications -Valium should help with anxiety and benign essential tremor -Has been Etoh free for 4 years, recommended continued cessation -Can consider propranolol for essential tremor in the future -Continue mgmt of HTN, maintain normotensive range -Continue statin -CPAP for NIELS if able to tolerate, I will see him as outpatient for further mgmt -Continued weight loss for obesity, lost 35 pounds since [facility] -Follow up psych as outpatient
--- NOTE | 2018-02-08 09:46 | PN ---
Progress Note (short form) - Note Progress Note: 68 year old male known case of hypertension and hypercholesterolemia admitted with persistent cough and expectoration treated with multiple coarses of antibiotics, patient also had SOB. currently treated for asthmatic bronchitis / COPD. progressive improvement of his pulmonary symptoms. Minimal cough. No SOB, no chest pain or discomfort.diagnosed to have benigned essential tremors. Active Medications Albuterol Sulfate (Ventolin 0.083% Nebulizer Soln -) 1 amp NEB Q4H PRN PRN Reason: SHORT OF BREATH/WHEEZING Last Admin: 02/06/18 21:01 Dose: 1 amp Albuterol Sulfate (Ventolin -) 2 mg PO QID [facility] Last Admin: 02/08/18 09:19 Dose: 2 mg Amoxicillin/Clavulanate Potassium (Augmentin - 875mg Tablet) 1 tab PO BID@0800, 1730 [facility] Stop: 02/12/18 17:31 Last Admin: 02/08/18 09:15 Dose: 1 tab Aspirin (Ecotrin -) 81 mg PO DAILY [facility] Last Admin: 02/08/18 09:15 Dose: 81 mg Budesonide/Formoterol Fumarate (Symbicort 160/4.5mcg -) 2 puff IH BID [facility] Last Admin: 02/08/18 09:16 Dose: 2 puff Diazepam (Valium -) 5 mg PO BID [facility] Last Admin: 02/08/18 09:15 Dose: 5 mg Guaifenesin (Robitussin Dm -) 10 ml PO Q4H PRN PRN Reason: COUGH/CHEST CONGESTION Last Admin: 02/08/18 09:14 Dose: 10 ml Ipratropium [place] (Atrovent 0.02% Nebulizer -) 1 amp NEB Q4H PRN PRN Reason: SHORT OF BREATH/WHEEZING Lisinopril (Prinivil) 10 mg PO DAILY [facility] Last Admin: 02/08/18 09:15 Dose: 10 mg Methylprednisolone Sodium Succinate (Solu-Medrol -) 40 mg IVPUSH BID [facility] Last Admin: 02/08/18 09:16 Dose: 40 mg Olanzapine (Zyprexa -) 7.5 mg PO HS [facility] Last Admin: 02/07/18 21:15 Dose: 7.5 mg Pantoprazole Sodium (Protonix -) 40 mg PO DAILY [facility] Last Admin: 02/08/18 09:15 Dose: 40 mg 68 year old male still coughing, no pallor, cyanosis, clubbing or jaundice. Last Vital Signs Temp Pulse Resp BP Pulse Ox 97.8 F 83 18 131/69 95 02/08/18 06:00 02/08/18 06:00 02/08/18 06:00 02/08/18 06:00 02/07/18 21:00 NECK: Supple, no JVD, carotid 2+, no bruits. HEART: PMI in the 5th ICS, no heaves or thrills. Heart sounds obscureds by coarse breath sounds and expiratory wheezing. LUNGS: Scattered creps. and wheezing bilaterally. ABDOMEN: Soft, protubarent, nontender, no organomegaly or palpable masses. EXTREMITIES: NO calf tenderness or dependent edema. Bilateral tremors of the hands. CBC, BMP 02/08/18 07:10 02/07/18 06:30 IMPRESSION: 1. Asthmatic bronchitis. 2. COPD. 3. Hypercholesterolemia. 4. Leukocytosis partly related to steroids. 5. Hypertension. 6. Family history of myasthenia gravis. Recommendations: 1. Continue current cardiac therapy. 2. Increase ambulation. 3. Discharge when medically stable.
[2018-02-08 09:57] LABS: PLATELET ESTIMATE NORMAL
[2018-02-08 10:38] VITALS: BP 127/88; PULSE 84; TEMP 98
--- NOTE | 2018-02-08 10:51 | DS ---
Physical Examination Vital Signs: Vital Signs Temperature 98 F 02/08/18 10:00 Pulse Rate 84 02/08/18 10:00 Respiratory Rate 18 02/08/18 10:00 Blood Pressure 127/88 02/08/18 10:00 O2 Sat by Pulse Oximetry (%) 95 02/08/18 10:00 Constitutional: Yes: Well Nourished Eyes: Yes: WNL HENT: Yes: WNL Neck: Yes: WNL Cardiovascular: Yes: WNL Respiratory: Yes: SOB on Exertion Gastrointestinal: Yes: WNL ...Rectal Exam: Yes: Deferred Renal/: Yes: WNL Breast(s): Yes: WNL Musculoskeletal: Yes: WNL Extremities: Yes: WNL Edema: No Peripheral Pulses: Left Radial: 1+, Right Radial: 1+, Left Doralis Pedis: 1+, Right Dorsalis Pedis: 1+, Left Femoral: 1+, Right Femoral: 1+ Integumentary: Yes: WNL Neurological: Yes: Tremors ...Motor Strength: WNL (less agitated) Labs: CBC, BMP 02/08/18 07:10 02/07/18 06:30 Discharge Summary Reason For Visit: CONGESTIVE HEART FAILURE/ACUTE EXACERBATION OF CHR Current Active Problems Adjustment reaction with anxiety and depression (Acute) Adjustment reaction with anxiety and depression (Acute) CHF (congestive heart failure) (Acute) COPD exacerbation (Acute) Cough in adult patient (Acute) Dyspnea on exertion (Acute) Gall bladder stones (Acute) H/O craniotomy (Acute) Hypertension (Acute) PTSD (post-traumatic stress disorder) (Acute) Sleep apnea (Acute) Condition: Fair - Instructions Diet, Activity, Other Instructions: ambilate at jose low na diet psych f/u neuro f/u appt w mon 1200noon cont all meds at home as is po [id number] bid x 5 days Referrals: Dileep Arango MD [Primary Care Provider] - Disposition: HOME - Home Medications Comprehensive Discharge Medication List: Ambulatory Orders Zolpidem Tartrate [Ambien Cr] 12.5 mg PO HS 01/25/16 Amlodipine Besylate/Benazepril [Lotrel 5-10 mg Capsule] 1 each PO DAILY Diazepam [Valium] 5 mg PO ONCE 02/04/18 Sulfamethoxazole/Trimethoprim [Sulfatrim 800-160 mg/20 ml Jeanie] 20 ml PO BID 03/19 Gabapentin 600 mg PO HS 02/05/18 Gabapentin [Neurontin -] 200 mg PO DAILY 02/05/18
[2018-02-08] MEDS ORDERED: diazePAM 5 MG TABLET PO SCH (11:00)
--- NOTE | 2018-02-08 11:13 | PN ---
Progress Note (short form) - Note Progress Note: PULMONARY States breathing improving. No cough or wheezing. Last Vital Signs Temp Pulse Resp BP Pulse Ox 98 F 84 18 127/88 95 02/08/18 10:00 02/08/18 10:00 02/08/18 10:00 02/08/18 10:00 02/08/18 10:00 Gen: NAD at rest Heart: RRR Lung: decreased breath sounds at the bases Abd: soft, nontender Ext: no edema CBC, BMP 02/08/18 07:10 02/07/18 06:30 Active Medications Albuterol Sulfate (Ventolin -) 2 mg PO QID [facility] Last Admin: 02/08/18 09:19 Dose: 2 mg Amoxicillin/Clavulanate Potassium (Augmentin - 875mg Tablet) 1 tab PO BID@0800, 1730 [facility] Stop: 02/12/18 17:31 Last Admin: 02/08/18 09:15 Dose: 1 tab Aspirin (Ecotrin -) 81 mg PO DAILY [facility] Last Admin: 02/08/18 09:15 Dose: 81 mg Budesonide/Formoterol Fumarate (Symbicort 160/4.5mcg -) 2 puff IH BID [facility] Last Admin: 02/08/18 09:16 Dose: 2 puff Diazepam (Valium -) 5 mg PO BID [facility] Last Admin: 02/08/18 09:15 Dose: 5 mg Diazepam (Valium -) 5 mg PO ONCE [facility] Ipratropium [place] (Atrovent 0.02% Nebulizer -) 1 amp NEB Q4H PRN PRN Reason: SHORT OF BREATH/WHEEZING Lisinopril (Prinivil) 10 mg PO DAILY [facility] Last Admin: 02/08/18 09:15 Dose: 10 mg Non-Formulary Medication (Amlodipine Besylate/Benazepril [Lotrel 5-10 Mg Capsule ]) 1 each PO DAILY [facility] Non-Formulary Medication (Gabapentin [Gabapentin]) 600 mg PO HS [facility] Olanzapine (Zyprexa -) 7.5 mg PO HS [facility] Last Admin: 02/07/18 21:15 Dose: 7.5 mg Pantoprazole Sodium (Protonix -) 40 mg PO DAILY [facility] Last Admin: 02/08/18 09:15 Dose: 40 mg A/P Acute Bronchospasm HTN Hyperlipidemia NIELS - medrol taper as outpt - inhaled bronchodilators - complete empiric antibiotics - outpt PFTs
[2018-02-08] MEDS ORDERED: GABAPENTIN 300 MG CAPSULE (FP) PO SCH (22:00)
[2018-02-09] MEDS ORDERED: PATIENT'S OWN MEDICATION (NON-FORMULARY) (Amlodipine Besylate/Benazepril [Lotrel 5-10 Mg C PO SCH (10:00)
[2018-02-09] MEDS ORDERED: amLODIPine BESYLATE 5 MG TABLET (FP) PO SCH (10:00)
== END 2018-02-08 13:40 | disposition home or self-care (01) | DRG 192 ==
LOC: JER 06:14 → JERBED 10:26 → UNDOADMOB 10:34 → JERBED 10:34 → J4W 02-05 00:42
PROVIDERS: ADMIT Family Medicine; ATTEND Family Medicine
DX: J44.0 Chronic obstructive pulmonary disease with (acute) lower respiratory infection (principal); I10 Essential (primary) hypertension; J20.9 Acute bronchitis, unspecified; F43.10 Post-traumatic stress disorder, unspecified; F43.23 Adjustment disorder with mixed anxiety and depressed mood; G47.33 Obstructive sleep apnea (adult) (pediatric); E66.9 Obesity, unspecified; Z68.33 Body mass index [BMI] 33.0-33.9, adult; E78.5 Hyperlipidemia, unspecified; F51.04 Psychophysiologic insomnia
CPT/HCPCS: 36415; 71250-TC; 80048; 80053; 82550; 82803; 83880; 84484; 85025; 87040; 93005; 93010; 93970-TC; 94640; 99284-25; J7620